=== PATIENT | male | born 2000 | race Caucasian/White ===

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

== ENCOUNTER 2020-05-13 14:37 | Outpatient (CLI) | payer OTHER | END 2020-05-13 14:38 | disposition home or self-care (01) | LOC: BICRAD 14:37 | DX: S42.322 Displaced transverse fracture of shaft of humerus, left arm (principal); Z98.890 Other specified postprocedural states ==